=== PATIENT | female | born 1995 | race Two or more races ===

== ENCOUNTER 2017-03-26 19:50 | Emergency (ER) | payer MEDICAID, OTHER ==
[~2017-03-26] VITALS: Ht 162.6 cm; Wt 59.0 kg
[2017-03-26] MEDS ORDERED: HYDROCODONE/ACETAMINOPHEN 5/325MG TABLET PO ONE (20:45)
[2017-03-26 20:51] VITALS: BP 100/60
== END 2017-03-26 22:58 | disposition home or self-care (01) ==
LOC: ER 21:03
DX: S93.401A Sprain of unspecified ligament of right ankle, initial encounter (principal); Y93.66 Activity, soccer; Y92.838 Other recreation area as the place of occurrence of the external cause
CPT/HCPCS: 73562; 73590; 73610; 73630; 99284; Z7610